=== PATIENT | male | born 1970 | race American Indian/Alaskan Native ===

== ENCOUNTER → 2018-11-22 12:31 | Emergency (ER) | payer MEDICAID | END | disposition left against medical advice (07) | LOC: C.ER 12:31 | DX: Z02.89 Encounter for other administrative examinations (principal); Z00.00 Encounter for general adult medical examination without abnormal findings ==

== ENCOUNTER 2018-11-22 13:07 | Inpatient (IN) | payer MEDICAID ==
[2018-11-22 14:59] LABS: BASO # 0.1 K/uL (0.0-0.2); BASO % 0.9 % (0.0-2.0); EOS # 0.1 K/uL (0.0-0.7); EOS % 1.5 % (0.0-4.0); HEMOGLOBIN 13.2 g/dL (12.0-18.0); LYMPH # 2.5 K/uL (1.0-4.3); LYMPH % 26.1 % (20.0-40.0); MEAN CELL VOLUME 83.6 fL (80.0-94.0); MEAN CORPUSCULAR HEMOGLOBIN 27.1 pg (27.0-31.0); MEAN CORPUSCULAR HGB CONC 32.4 g/dL (33.0-37.0); MEAN PLATELET VOLUME 9.2 fL (7.2-11.7); MONO % 10.9 % (0.0-10.0); NEUT # 5.8 K/uL (1.8-7.0); NEUT % 60.6 % (50.0-75.0); RBC 4.86 Mil/uL (4.40-5.90); RED CELL DISTRIBUTION WIDTH 17.1 % (11.5-14.5); WHITE BLOOD COUNT 9.6 K/uL (4.8-10.8)
[2018-11-22 15:10] LABS: SQUAMOUS EPITHIAL < 1 /hpf (0-5); URINE BACTERIA RARE (<OCC); URINE BILIRUBIN NEGATIVE (NEGATIVE); URINE BLOOD NEGATIVE (NEGATIVE); URINE CLARITY Clear (Clear); URINE COLOR Yellow (YELLOW); URINE GLUCOSE (UA) NORMAL (Normal); URINE LEUKOCYTE ESTERASE NEG Leu/uL (Negative); URINE PROTEIN NEGATIVE (NEGATIVE); URINE UROBILINOGEN NORMAL mg/dL (0.2-1.0)
[2018-11-22 15:13] LABS: ALB/GLOB RATIO 1.7 (1.0-2.1); ALBUMIN 4.4 g/dL (3.5-5.0); ALT/SGPT 32 U/L (21-72); AST/SGOT 22 U/L (17-59); BLOOD UREA NITROGEN 17 mg/dL (9-20); CALCIUM 8.8 mg/dl (8.6-10.4); GFR NON-AFRICAN AMERICAN > 60
[2018-11-22 15:29] LABS: BARBITURATES, UR NEGATIVE (NEGATIVE); BENZODIAZEPINES, UR NEGATIVE (NEGATIVE); PHENCYCLIDINE, UR NEGATIVE (NEGATIVE)
[2018-11-22 15:32] LABS: OPIATES, UR POSITIVE (NEGATIVE)
--- NOTE | 2018-11-22 16:22 | C.PDOC ---
History Of Present Illness 48 y/o male presents to the ER for detox from cocaine and heroin. Patient states that he last used cocaine 2 days ago and heroin in the morning today.Patient denies having suicidal ideation, homicidal ideation, and active physical co mplaints. Time Seen by Provider: 11/22/18 13:23 Chief Complaint (Nursing): Substance Abuse History Per: Patient History/Exam Limitations: no limitations Past Medical History Reviewed: Historical Data, Nursing Documentation, Vital Signs Vital Signs: Last Vital Signs Temp 98.7 F 11/22/18 16:03 Pulse 92 H 11/22/18 16:03 Resp 15 11/22/18 16:03 BP 119/68 11/22/18 16:03 Pulse Ox 99 11/22/18 16:03 - Medical History PMH: Seizures Surgical History: No Surg Hx Family History: States: No Known Family Hx - Social History Hx Alcohol Use: Yes Hx Substance Use: Yes - Immunization History Hx Tetanus Toxoid Vaccination: No Hx Influenza Vaccination: No Hx Pneumococcal Vaccination: No Review Of Systems Except As Marked, All Systems Reviewed And Found Negative. Constitutional: Negative for: Fever, Chills Psych: Negative for: Suicidal ideation Physical Exam - Physical Exam Appears: No Acute Distress Skin: Normal Color, Warm, Dry Head: Atraumatic, Normacephalic Eye(s): bilateral: Normal Inspection Nose: Normal Oral Mucosa: Moist Neck: Supple Chest: Symmetrical Cardiovascular: Rhythm Regular Respiratory: Normal Breath Sounds, No Rales, No Rhonchi, No Wheezing Gastrointestinal/Abdominal: Soft, No Tenderness, No Guarding, No Rebound Neurological/Psych: Oriented x3, Normal Speech ED Course And Treatment - Laboratory Results Result Diagrams: 11/22/18 14:54 11/22/18 14:54 O2 Sat by Pulse Oximetry: 99 (RA) Pulse Ox Interpretation: Normal Medical Decision Making Medical Decision Making: Plan: --Labs --UA Updates: Crisis evaluated patient. Patient has been accepted for admission by . Disposition Discussed With : Amadeo Salas Doctor Will See Patient In The: Hospital Counseled Patient/Family Regarding: Studies Performed, Diagnosis - Disposition Disposition: HOSPITALIZED Disposition Time: 16:22 Condition: GOOD - Clinical Impression Clinical Impression: Drug abuse - Scribe Statement The provider has reviewed the documentation as recorded by the Beba Chamberlain Provider Attestation: All medical record entries made by the Scribe were at my direction and personally dictated by me. I have reviewed the chart and agree that the record accurately reflects my personal performance of the history, physical exam, medical decision making, and the department course for this patient. I have also personally directed, reviewed, and agree with the discharge instructions and disposition.
--- NOTE | 2018-11-22 16:28 | PCM.BM ---
<Rola Stevens - Last Filed: 11/22/18 16:27> Treatment Plan Problems - Problems identified on initial assessmt potiential for opiate withdrawal Date Initiated: 11/22/18 Time Initiated: 16:27 Date resolved: 11/22/18 Assessment reference: NA Status: Active Treatment assets and liabiliti Patient Assests: ADL independent, negotiates basic needs, cognitively intact Patient Liabilities: substance abuse, medical problems - Milieu Protocol Maintain good personal hygiene: daily Encourage regular showers, daily Remind patient to perform daily oral care, daily Assist patient to perform ADL's Maintain personal safety: every shift Educate patient to report safety concerns to staff, every shift Monitor environment for contraband/sharps Medication safety: Monitor for expected outcome, potential side effects: every shift, Assess barriers to learning: every shift, Assess readiness for medication education: every shift <Ambreen Lewis - Last Filed: 11/24/18 09:42> Family Contact Family involvement: No known Family/SO - Goals for Treatment Patient goals for treatment: Complete detox and apply for long-term inpatient rehab. Discharge/Continuing Care - Education Needs Education Needs: Patient Medication, Patient Diagnosis/Disease Process, Patient Coping Skills, Patient Anger Management skills, Patient Placement options, Patient Community resources, Patient Other (ascertaining an ID) - Discharge Discharge Criteria: No longer exhibiting s/s of withdrawal, Reduction of target symptoms Discharge to:: Substance Abuse Rehab - Treatment Team Participation Patient/Family/SO Statement: 11/24/18 09:43 "I [facility] go to [facility] but I'm open to the [facility]..." Discussed with Family/SO: No Was Patient/Family/SO present at Treatment Team Meeting: Yes <Amadeo Salas - Last Filed: 11/24/18 20:50> - Diagnosis (1) Opioid use disorder, severe, dependence Status: Acute Interventions: 11/24/18 20:49 * Assess 7x/week regarding severity of withdrawal * Educate regarding risks, benefits, side effects and alternatives of medications * Use Motivational Interviewing for abstinence * Use CBT for relapse prevention * Medication management for withdrawal symptoms * Encourage medication assisted treatment (2) Cocaine use disorder, severe, dependence Status: Acute Interventions: 11/24/18 20:49 * Assess 7x/week regarding severity of withdrawal * Educate regarding risks, benefits, side effects and alternatives of medications * Use Motivational Interviewing for abstinence * Use CBT for relapse prevention * Medication management for withdrawal symptoms * Encourage medication assisted treatment (3) Chronic post-traumatic stress disorder (PTSD) Status: Acute Interventions: 11/24/18 20:50 * Assess/adjust medications daily and /or as needed * See patient on an individual basis 7x/week to assess level of manic behaviors and stability * Discuss risks, benefits, side effects and alternatives of medications
[2018-11-22] MEDS ORDERED: Aluminum Hydroxide/Magnesium Hydroxide Susp (30 mL) PO PRN (17:43)
[2018-11-22] MEDS ORDERED: Buprenorphine Hydrochloride 2 mg SL ONE ×2 (18:00→19:24)
[2018-11-22] MEDS ORDERED: Albuterol HFA 90 mcg/actuation (8 g) INH PRN (19:01)
[2018-11-23] MEDS: Tiotropium 18 mcg Cap For Inhalation INH SCH (08:12)
[2018-11-23] MEDS: Buprenorphine Hydrochloride 2 mg SL SCH (09:03)
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
[2018-11-24] MEDS: Tiotropium 18 mcg Cap For Inhalation INH SCH (08:18)
[2018-11-24] MEDS: Buprenorphine Hydrochloride 2 mg SL SCH (09:02)
[2018-11-24 14:18] VITALS: RESP 18
--- NOTE | 2018-11-24 20:54 | PCM.PYCHPN ---
Psychiatric Progress Note - Psychiatric Progress Note Patient seen today, length of contact: 15 minutes Patient Chief Complaint: I am feeling little better. Problems Identified/Issues Discussed: Patient seen, chart reviewed, case discussed with the staff. Issues related to illness and treatment were discussed with the patient and staff. Reported compliant with treatment with no adverse effect. Calm and cooperative. Reported feeling little better. Still having withdrawal symptoms including shaking, sweating, body aches and headache. Awake, alert and oriented x3. Mood reported as anxious. Affect appropriate. Memory intact. Aftercare discussed with the patient. Denied any delusions, auditory or visual hallucinations, suicidal ideations or homicidal ideations at the time of evaluation. Medical Problems: Borderline diabetes mellitus Seizure disorder Asthma Diagnostic Results: Reviewed DSM 5 Symptoms Update: Some improvement with treatment Medication Change: No Medical Record Reviewed: Yes Mental Status Examination - Cognitive Function Orientation: Person, Place, Situation, Time Memory: Intact Attention: WNL Concentration: WNL Association: [facility] Fund of Knowledge: [facility] Decription of patient's judgement and insights: Fair - Mood Mood: Anxious - Affect Affect: Other (Appropriate) - Speech Speech: Appropriate - Formal Thought Process Formal Thought Process: No Impairment Psychotic Thoughts and Behaviors: None - Suicidal Ideation Suicidal Ideation: No - Homicidal Ideation Homicidal Ideation: No Goal/Treatment Plan - Goal/Treatment Plan Need for Continued Stay: Remain at risks for inpatient hospitalization, Discharge may exacerbated symptoms, Severe functional impairment Progress Toward Problem(s) and Goals/Treatment Plan: Patient education. Supportive therapy. CBT for relapse prevention. FL for abstinence. Continue treatment as before. Patient wants to go to [facility] for follow-up care after discharge from the hospital. Estimated Date of D/C: 11/26/18 - Smoking Cessation Smoking Cessation Initiated: Yes
[2018-11-25] MEDS: Tiotropium 18 mcg Cap For Inhalation INH SCH (08:30)
[2018-11-25] MEDS: Buprenorphine Hydrochloride 2 mg SL SCH (09:18)
--- NOTE | 2018-11-25 15:29 | PCM.PYCHPN ---
Psychiatric Progress Note - Psychiatric Progress Note Patient seen today, length of contact: 15 minutes Patient Chief Complaint: I am feeling better. Problems Identified/Issues Discussed: Patient seen, chart reviewed, case discussed with the staff. Issues related to illness and treatment were discussed with the patient and staff. Reported compliant with treatment with no adverse effect. Calm and cooperative. Reported feeling better. Patient has less withdrawal symptoms. Still feels drowsiness. Awake, alert and oriented x3. Mood reported as anxious. Affect appropriate. Memory intact. Aftercare discussed with the patient. Denied any delusions, auditory or visual hallucinations, suicidal ideations or homicidal ideations at the time of evaluation. Medical Problems: Borderline diabetes mellitus Seizure disorder Asthma Diagnostic Results: Reviewed DSM 5 Symptoms Update: Some improvement with treatment. Medication Change: No Medical Record Reviewed: Yes Mental Status Examination - Cognitive Function Orientation: Person, Place, Situation, Time Memory: Intact Attention: WNL Concentration: WNL Association: [facility] Fund of Knowledge: [facility] Decription of patient's judgement and insights: Fair - Mood Mood: Anxious (Less than before) - Affect Affect: Other (Appropriate) - Speech Speech: Appropriate - Formal Thought Process Formal Thought Process: No Impairment Psychotic Thoughts and Behaviors: None - Suicidal Ideation Suicidal Ideation: No - Homicidal Ideation Homicidal Ideation: No Goal/Treatment Plan - Goal/Treatment Plan Need for Continued Stay: Remain at risks for inpatient hospitalization, Discharge may exacerbated symptoms, Severe functional impairment Progress Toward Problem(s) and Goals/Treatment Plan: Patient education. Supportive therapy. CBT for relapse prevention. OR for abstinence. Continue treatment as before. Patient wants to go to [facility] for follow-up care after discharge from the hospital. Estimated Date of D/C: 11/26/18 - Smoking Cessation Smoking Cessation Initiated: Yes
[2018-11-26] MEDS: Tiotropium 18 mcg Cap For Inhalation INH SCH (08:07)
[2018-11-26 11:10] VITALS: BP 121/75; PULSE 94; TEMP 98.7; O2SAT 99
--- NOTE | 2018-11-26 12:50 | PCM.PYCHDC ---
Mental Status Examination - Mental Status Examination Orientation: Person, Place, Situation, Time Memory: Intact Mood: Neutral Affect: Other (Appropriate) Speech: Appropriate Attention: WNL Concentration: WNL Association: WNL Fund of Knowledge: WNL Formal Thought Process: No Impairment Description of patient's judgement and insight: Fair Psychotic Thoughts and Behaviors: None Suicidal Ideation: No Current Homicidal Ideation?: No Discharge Summary - Discharge Note Reason for Hospitalization: Opioid use disorder severe Cocaine use disorder severe PTSD Laboratory Data: Reviewed Consultations:: List each consultation separately and include: 1. Reason for request. 2. Findings. 3. Follow-up Summary of Hospital Course include:: 1. Description of specific treatment plan utilized for patients during their course of treatmen. 2. Summarize the time- course for resolution of acute symptoms and/or regressed behaviors. 3. Describe issues identified and worked on during hospitalization. 4. Describe medication utilized. 5. Describe medical problems identified and treated. 6. Reassessment of suicide risk Summary of Hospital Course: Patient is a 48 years old, single, unemployed, -Togolese male with no pre vious psychiatric history was admitted due to withdrawing from heroin and cocaine. Opioid: Patient who has history of using ecstasy, Yvette, Percocet and Roxies for over 10 years later switched to heroin about 5 years ago, was using 6-7 bags of heroin daily, sniffing. Last used yesterday. Patient has longest period of abstinence for 5 years from [id number]. Patient denied any previous detox or rehabs. Cocaine: He started using cocaine at 29 years of age, was using every day. Currently he is using a botanicals every other day. Last used yesterday. Patient denied use of alcohol and cannabis. Smokes 1 pack of cigarettes daily and is requesting for nicotine patch. Patient has history of right hand surgery, appendicectomy and hydrocele surgery. Patient was incarcerated for burglary and drug charges twice. Once from 1998- 2003 and second time from [id number]. Patient is not on probation. Patient was born in [place] and has a GED. He is not working since July 2018. He was working in construction. Patient is single and has 6 grownup children from 2 different females. Currently he is homeless and is on public assistance. His height is 6 feet and weight is 190 pounds. During his stay in the hospital patient was treated with buprenorphine taper for opioid withdrawal symptoms. He was also started on when necessary medications and his home medication for his medical awareness. Patient was attending groups and other activities on the unit. With above treatment patient started feeling better. Today patient had no withdrawal symptoms [facility] At the time of evaluation and discharge, patient was awake, alert and oriented 3, had no delusions, no auditory or visual hallucinations, no suicidal ideations or homicidal ideations. Patient was discharged in a stable condition. - Diagnosis (1) Opioid use disorder, severe, dependence Status: Acute (2) Cocaine use disorder, severe, dependence Status: Acute (3) Chronic post-traumatic stress disorder (PTSD) Status: Acute - Final Diagnosis (DSM 5) Condition upon Discharge: GOOD Disposition: HOME/ ROUTINE Follow-up Treatment Plan: Patient will go to [facility] for follow-up care after discharge from the hospital. Prescriptions/Medication Reconciliation: Phenytoin, Extended [Dilantin] 100 mg PO TID #90 cer traZODone [Desyrel] 50 mg PO HS #30 tab - Smoking Cessation Smoking Cessation Medication prescribed: No - Antipsychotic Medications Pt discharged on 2 or more routine antipsychotic medications: No
== END 2018-11-26 12:20 | disposition home or self-care (01) | DRG 745 ==
LOC: C.ER 13:07 → C.7D 16:14
PROC: HZ2ZZZZ Detoxification Services for Substance Abuse Treatment (ICD-10-PCS; principal; 2018-11-22)
PROC: HZ80ZZZ Medication Management for Substance Abuse Treatment, Nicotine Replacement (ICD-10-PCS; 2018-11-22)
PROC: HZ46ZZZ Group Counseling for Substance Abuse Treatment, Psychoeducation (ICD-10-PCS; 2018-11-22)
PROC: HZ59ZZZ Individual Psychotherapy for Substance Abuse Treatment, Supportive (ICD-10-PCS; 2018-11-22)
DX: F11.23 Opioid dependence with withdrawal (principal); F14.23 Cocaine dependence with withdrawal; F17.210 Nicotine dependence, cigarettes, uncomplicated; F43.12 Post-traumatic stress disorder, chronic; Z62.810 Personal history of physical and sexual abuse in childhood; G40.909 Epilepsy, unspecified, not intractable, without status epilepticus; J45.909 Unspecified asthma, uncomplicated; R73.03 Prediabetes; Z59.0 Homelessness

== ENCOUNTER 2018-12-01 08:24 | Emergency (ER) | payer MEDICAID ==
[2018-12-01 08:38] VITALS: TEMP 98.6; O2SAT 98
--- NOTE | 2018-12-01 10:02 | C.PDOC ---
History Of Present Illness 48 y/o male presents to the ER complaining of acute onset of chronic back pain which has been present for the past 4 days. Patient states that the pain began after he lifted heavy objects during his work at the [employer]. Patient reports that he had an accident few years ago and he has back pain since the accident. Denies having dysuria, hematuria, and bowel/bladder incontinence. Time Seen by Provider: 12/01/18 08:56 Chief Complaint (Nursing): Back Pain History Per: Patient History/Exam Limitations: no limitations Onset/Duration Of Symptoms: Days Current Symptoms Are (Timing): Still Present Severity: Moderate Previous Symptoms: Back Pain Past Medical History Reviewed: Historical Data, Nursing Documentation, Vital Signs Vital Signs: Last Vital Signs Temp 98.6 F 12/01/18 08:34 Pulse 89 12/01/18 08:34 Resp 18 12/01/18 08:34 BP 108/69 12/01/18 08:34 Pulse Ox 98 12/01/18 08:34 - Medical History PMH: No Chronic Diseases, Seizures Other PMH: Back Pain Surgical History: Appendectomy - [facility] Procedures DETOXIFICATION SERVICES FOR SUBSTANCE ABUSE TREATMENT (11/22/18) GROUP PACKAGER AND STRAPPER FOR SUBSTANCE ABUSE TREATMENT, PSYCHOEDUCATION (11/22/18) INDIV PSYCHOTHERAPY FOR SUBSTANCE ABUSE TREATMENT, SUPPORT (11/22/18) MEDS MGMT FOR SUBSTANCE ABUSE TREATMENT, NICOTINE REPLACE (11/22/18) Family History: States: No Known Family Hx - Social History Hx Alcohol Use: Yes Hx Substance Use: Yes - Immunization History Hx Tetanus Toxoid Vaccination: No Hx Influenza Vaccination: No Hx Pneumococcal Vaccination: No Review Of Systems Except As Marked, All Systems Reviewed And Found Negative. Constitutional: Negative for: Fever, Chills Genitourinary: Negative for: Dysuria, Frequency, Incontinence Musculoskeletal: Positive for: Back Pain Physical Exam - Physical Exam Appears: Non-toxic, No Acute Distress Skin: Normal Color, Warm, Dry Head: Atraumatic, Normacephalic Eye(s): bilateral: Normal Inspection Nose: Normal Oral Mucosa: Moist Neck: Supple Chest: Symmetrical Cardiovascular: Rhythm Regular Respiratory: Normal Breath Sounds Gastrointestinal/Abdominal: Normal Exam, Soft Back: Paraspinal Tenderness (paralumbar tenderness) Neurological/Psych: Oriented x3, Normal Speech, Normal Motor, Normal Sensation Gait: Steady ED Course And Treatment O2 Sat by Pulse Oximetry: 98 (RA) Pulse Ox Interpretation: Normal - Other Rad R-Dla-Dgucjw Spine X-Ray: Viewed By Me, Read By Radiologist Interpretation: Date of service: The. 12/01/2018. PROCEDURE: Radiographs of the Lumbar Spine. HISTORY: pain. COMPARISON: No prior. FINDINGS: BONES: No acute compression fractures nor retropulsed fragments. DISC SPACES: Minimal posterior subluxation L5 over S1 exacerbated in appearance by a small osteophyte arising from the posterior inferior corner of the L5 segment. Mild posterior disc space narrowing seen at several levels. Facets also mildly hypertrophic the L5-S1. Osteophyte formation seen along the posterior inferior corner of the L5 segment with very minimal.. OTHER FINDINGS: None. IMPRESSION: No acute fractures.. Very minor degenerative spondylosis as described Progress Note: Treated with flexeril and tylenol. On re-evaluation feeling better, ambulating Reassessment Condition: Improved Medical Decision Making Medical Decision Making: Plan: --X-Ray- Lumbar Spine --Flexeril PO --Tylenol PO --UA Disposition Counseled Patient/Family Regarding: Studies Performed, Diagnosis, Need For Followup, Rx Given - Disposition Referrals: [facility] [Outside] [facility] [Outside] Disposition: HOME/ ROUTINE Disposition Time: 10:40 Condition: GOOD Additional Instructions: Follow up with clinic for further evaluation Prescriptions: Cyclobenzaprine [Cyclobenzaprine HCl] 10 mg PO Q12 PRN #12 tab PRN Reason: Pain, Mild (1-3) Instructions: Low Back Pain in Adults Forms: [facility] (Uruguayan), Work Excuse - POA Present On Arrival: None - Clinical Impression Clinical Impression: Low back pain - PA / DEPARTMENT STORE GENERAL MANAGER / Resident Statement MD/DO has reviewed & agrees with the documentation as recorded. - Scribe Statement The provider has reviewed the documentation as recorded by the Beba Chamberlain Provider Attestation All medical record entries made by the Beba were at my direction and personally dictated by me. I have reviewed the chart and agree that the record accurately reflects my personal performance of the history, physical exam, medical decision making, and the department course for this patient. I have also personally directed, reviewed, and agree with the discharge instructions and disposition.
[2018-12-01 10:05] LABS: SQUAMOUS EPITHIAL < 1 /hpf (0-5); URINE BILIRUBIN NEGATIVE (NEGATIVE); URINE BLOOD NEGATIVE (NEGATIVE); URINE CLARITY Clear (Clear); URINE COLOR Yellow (YELLOW); URINE GLUCOSE (UA) NORMAL (Normal); URINE LEUKOCYTE ESTERASE NEG Leu/uL (Negative); URINE PROTEIN NEGATIVE (NEGATIVE); URINE UROBILINOGEN NORMAL mg/dL (0.2-1.0)
[2018-12-01 10:22] VITALS: BP 118/69; PULSE 78; RESP 20
--- NOTE | 2018-12-01 10:56 | RAD ---
Date of service: The 12/01/2018 PROCEDURE: Radiographs of the Lumbar Spine. HISTORY: pain COMPARISON: No prior. FINDINGS: BONES: No acute compression fractures nor retropulsed fragments. DISC SPACES: Minimal posterior subluxation L5 over S1 exacerbated in appearance by a small osteophyte arising from the posterior inferior corner of the L5 segment. Mild posterior disc space narrowing seen at several levels. Facets also mildly hypertrophic the L5-S1 Osteophyte formation seen along the posterior inferior corner of the L5 segment with very minimal.. OTHER FINDINGS: None. IMPRESSION: No acute fractures.. Very minor degenerative spondylosis as described
== END 2018-12-01 10:38 | disposition home or self-care (01) ==
LOC: C.ER 08:24
DX: M54.5 Low back pain (principal)